=== PATIENT | female | born 1925 | race African-American/Black ===

== ENCOUNTER 2016-08-15 16:34 | Inpatient (IN) | payer OTHER, MEDICAID ==
[~2016-08-15] VITALS: Ht 157.5 cm; Wt 67.5 kg
[~2016-08-15 16:34] MED LIST: LISI30TA36; METF-370
[2016-08-15 17:42] LABS: Basophils # (auto) 0 uL; Basophils % (auto) 0.5 % (0.0-2.0); CONDITION Y; Eosinophils # (auto) 0.5 uL; Eosinophils % (auto) 7.7 % (0.0-7.0); Hematocrit 41.2 % (36.0-46.0); Hemoglobin 13.6 g/dL (12.2-16.2); Lymphocytes # (auto) 0.7 uL; Lymphocytes % (auto) 12.1 % (10.0-50.0); Mean Corpuscular Hgb Conc. 32.9 g/dL (32.0-36.0); Mean Corpuscular Volume 94.2 fL (80.0-100.0); Mean Platelet Volume 7.5 fL (7.4-10.4); Monocytes # (auto) 0.5 uL; Monocytes % (auto) 8.6 % (0.0-12.0); Neutrophils # (auto) 4.4 uL; Neutrophils % (auto) 71.1 % (37.0-80.0); Platelet Count (auto) 259 10^3/uL (140-450); White Blood Cell 6.1 10^3/uL (4.4-10.8)
[2016-08-15 17:51] LABS: Anion Gap 11 (5-15); Aspartate Aminotransferase 29 U/L (15-37); BUN/Creatinine Ratio 6.2; Blood Urea Nitrogen 12 mg/dL (7-18); Calcium 8.6 mg/dL (8.5-10.1); Carbon Dioxide 21 mmol/L (21-32); Chloride 109 mmol/L (98-107); GFR African American 31 mL/min; GFR Non-African American 26 mL/min; Glucose 127 mg/dL (74-106); Magnesium 2.3 mg/dL (1.6-2.6); Potassium 4.2 mmol/L (3.5-5.1); Sodium 141 mmol/L (136-145)
[2016-08-15 17:56] LABS: Alkaline Phosphatase 62 U/L (45-117); Bilirubin, Total 0.6 mg/dL (0.2-1.0); Total Protein 5.8 g/dL (6.4-8.2)
[2016-08-15] MEDS ORDERED: MORPHINE SULF INJ 2 MG/ML SYRINGE 1ML IV ONE (18:45)
[2016-08-15] MEDS ORDERED: FUROSEMIDE 40 MG/4 ML VIAL IV ONE (18:45)
[2016-08-15] MEDS ORDERED: ONDANSETRON HCL 4 MG/2 ML VIAL IV ONE (18:45)
[2016-08-15 21:16] LABS: B-Type Natriuretic Peptide 37.35 pg/mL (0-100)
[2016-08-15 21:17] LABS: Temperature: 23.7 C (20.0-25.0)
[2016-08-15] MEDS ORDERED: DOCUSATE SOD 100 MG CAP PO PRN (21:45)
[2016-08-15] MEDS ORDERED: TEMAZEPAM 15 MG CAP PO PRN (21:45)
[2016-08-15] MEDS ORDERED: ACETAMINOPHEN 325 MG TAB PO PRN (21:45)
[2016-08-15] MEDS ORDERED: NITROGLYCERIN 0.4 MG SL TAB SL PRN (21:45)
[2016-08-15] MEDS ORDERED: DEXTROSE (50%) 50ML SYRG IV PRN (21:45)
[2016-08-15] MEDS ORDERED: MORPHINE SULF INJ 2 MG/ML SYRINGE 1ML IV PRN (21:45)
[2016-08-15] MEDS ORDERED: ONDANSETRON HCL 4 MG/2 ML VIAL IV PRN (21:45)
[2016-08-15] MEDS: ATORVASTATIN 20 MG TAB PO SCH (23:06)
[2016-08-15] MEDS: FAMOTIDINE 20 MG TAB PO SCH (23:06)
[2016-08-15 23:42] LABS: Urine Bilirubin Negative (Negative); Urine Blood Negative /uL (Negative); Urine Color Yellow (Yellow); Urine Glucose Normal (Normal); Urine Ketone Negative (Negative); Urine Nitrite Negative (Negative); Urine RBC 4 /hpf (0 - 4); Urine Squamous Epithelial Cell FEW /hpf (<5); Urine Urobilinogen Normal (Negative)
[2016-08-16] VITALS (9 sets, daily range): BP systolic 113–163; BP diastolic 51–75
[2016-08-16] MEDS: ACCU-CHEK COMFORT CURVE STRIP VI SCH ×5 (00:16→23:50)
[2016-08-16] MEDS: InsuLIN REG 1unit/0.01ml Soln (100units/ml) SC SCH ×5 (00:22→23:50)
[2016-08-16 04:07] LABS: CONDITION Y; DEFINITIVE SEE PRINTOUT; Hematocrit 36.1 % (36.0-46.0); Hemoglobin 12.4 g/dL (12.2-16.2); Mean Corpuscular Hemoglobin 31.8 pg (28.0-32.0); Mean Corpuscular Hgb Conc. 34.4 g/dL (32.0-36.0); Mean Corpuscular Volume 92.2 fL (80.0-100.0); Platelet Count (auto) 248 10^3/uL (140-450); Red Cell Distribution Width 14.4 % (11.6-16.0); White Blood Cell 5.1 10^3/uL (4.4-10.8)
[2016-08-16 04:16] LABS: Myelocytes % 0; Promyelocytes % 0; Reactive Lymphocytes 0
[2016-08-16 04:29] LABS: Albumin 2.4 g/dL (3.4-5.0); Calcium 7.9 mg/dL (8.5-10.1); Potassium 3.7 mmol/L (3.5-5.1)
[2016-08-16 04:31] LABS: Bilirubin, Total 0.3 mg/dL (0.2-1.0); Total Protein 4.8 g/dL (6.4-8.2)
[2016-08-16 04:47] LABS: Hypersegmented Neutrophils Present; Metamyelocytes % 1; Platelet Estimate Adequate; RBC Morphology Normal
[2016-08-16] MEDS: FUROSEMIDE 20 MG TAB PO SCH ×2 (06:08→19:14)
[2016-08-16] MEDS ORDERED: HYDR-4663 PO (06:50)
[2016-08-16] MEDS ORDERED: GLIM1TAB2 PO (06:50)
[2016-08-16] MEDS ORDERED: LISI-275 PO (06:50)
[2016-08-16] MEDS ORDERED: AMLO5TAB2 PO (06:50)
[2016-08-16] MEDS ORDERED: METF-370 PO (06:50)
[2016-08-16] MEDS ORDERED: FOLI1TAB6 PO (06:50)
[2016-08-16] MEDS: GLIMEPIRIDE 2 MG TAB PO SCH (08:00)
[2016-08-16] MEDS: ENOXAPARIN SOD 30 MG/0.3 ML SYRINGE SC SCH (10:34)
[2016-08-16] MEDS: amLODIPine BESYLATE 5 MG TAB PO SCH (10:35)
[2016-08-16] MEDS: FAMOTIDINE 20 MG TAB PO SCH (10:35)
[2016-08-16] MEDS: LISINOPRIL 5 MG TAB PO SCH (10:35)
[2016-08-16 11:12] LABS: BUN/Creatinine Ratio 6.6; Calcium 8.1 mg/dL (8.5-10.1)
[2016-08-16] MEDS ORDERED: ceFAZolin 1GM VL ONE (12:51)
[2016-08-16] MEDS ORDERED: FUROSEMIDE 40 MG/4 ML VIAL IV ONE (15:45)
[2016-08-16] MEDS ORDERED: POTASSIUM CHL 10% (20 MEQ/15ML) ORAL SOLN PO ONE (15:45)
[2016-08-16 15:46] LABS: Base Excess -1.7 mmol/L (-2.0-2.0); Blood 02Sat 86.8 % (96-100); Blood COHb 0.1 % (0.5-1.5); Blood MetHb 0.4 % (0.0-1.5); HHb 13.1 % (0.0-5.0); MODE RA; O2Hb 86.4 % (94.0-97.0); PCO2 39.2 mmHg (35.0-45.0); PCO2(T) 39.2 mmHg (35.0-45.0); PO2 58.5 mmHg (80.0-100.0); PO2(T) 58.5 mmHg (80.0-100.0); Room 0247T; Sample Type Arterial; pH 7.387 (7.350-7.450)
[2016-08-16] MEDS: ATORVASTATIN 20 MG TAB PO SCH (21:36)
[2016-08-17 05:00] VITALS: BP 127/64
[2016-08-17] MEDS: FUROSEMIDE 20 MG TAB PO SCH ×2 (05:26→18:35)
[2016-08-17] MEDS: ACCU-CHEK COMFORT CURVE STRIP VI SCH ×4 (05:26→23:42)
[2016-08-17] MEDS: HYDROcodone-ACET 5/325MG TAB PO PRN ×2 (05:27→14:30)
[2016-08-17] MEDS: InsuLIN REG 1unit/0.01ml Soln (100units/ml) SC SCH ×4 (06:20→23:43)
[2016-08-17 07:40] VITALS: BP 106/56
[2016-08-17 07:46] LABS: Albumin 2.4 g/dL (3.4-5.0); Calcium 7.9 mg/dL (8.5-10.1); Magnesium 2.2 mg/dL (1.6-2.6); Potassium 4.3 mmol/L (3.5-5.1)
[2016-08-17 07:47] LABS: Basophils # (auto) 0 uL; Basophils % (auto) 0.1 % (0.0-2.0); CONDITION Y; Eosinophils # (auto) 0.3 uL; Eosinophils % (auto) 4.7 % (0.0-7.0); Hematocrit 38.7 % (36.0-46.0); Hemoglobin 12.9 g/dL (12.2-16.2); Lymphocytes # (auto) 0.5 uL; Lymphocytes % (auto) 7.7 % (10.0-50.0); Mean Corpuscular Hemoglobin 31.3 pg (28.0-32.0); Mean Corpuscular Hgb Conc. 33.4 g/dL (32.0-36.0); Mean Corpuscular Volume 93.7 fL (80.0-100.0); Mean Platelet Volume 7.9 fL (7.4-10.4); Monocytes # (auto) 0.7 uL; Monocytes % (auto) 11.7 % (0.0-12.0); Neutrophils # (auto) 4.7 uL; Neutrophils % (auto) 75.8 % (37.0-80.0); Platelet Count (auto) 256 10^3/uL (140-450); Red Cell Distribution Width 14.5 % (11.6-16.0); White Blood Cell 6.2 10^3/uL (4.4-10.8)
[2016-08-17 07:48] LABS: BUN/Creatinine Ratio 7.1
[2016-08-17 07:50] LABS: Bilirubin, Total 0.5 mg/dL (0.2-1.0); Total Protein 5.1 g/dL (6.4-8.2)
[2016-08-17 08:05] LABS: INR 1.03 (0.9-1.15); Prothrombin Time 11.2 sec (9.37-12.3)
[2016-08-17] MEDS: GLIMEPIRIDE 2 MG TAB PO SCH (08:35)
[2016-08-17 09:00] VITALS: BP 106/56
[2016-08-17] MEDS: amLODIPine BESYLATE 5 MG TAB PO SCH (10:00)
[2016-08-17] MEDS: LISINOPRIL 5 MG TAB PO SCH (10:00)
[2016-08-17] MEDS: FAMOTIDINE 20 MG TAB PO SCH (10:09)
[2016-08-17] MEDS: ENOXAPARIN SOD 30 MG/0.3 ML SYRINGE SC SCH (10:09)
[2016-08-17 13:00] VITALS: BP 101/54
[2016-08-17 17:00] VITALS: BP 113/55
[2016-08-17] MEDS: ATORVASTATIN 20 MG TAB PO SCH (21:49)
[2016-08-17 22:00] VITALS: BP 125/58
[2016-08-18 05:00] VITALS: BP 129/76
[2016-08-18] MEDS: FUROSEMIDE 20 MG TAB PO SCH (05:49)
[2016-08-18] MEDS: ACCU-CHEK COMFORT CURVE STRIP VI SCH ×2 (05:49→12:15)
[2016-08-18] MEDS: InsuLIN REG 1unit/0.01ml Soln (100units/ml) SC SCH ×2 (06:00→12:16)
[2016-08-18 07:39] LABS: CONDITION Y; DEFINITIVE SEE PRINTOUT; Hematocrit 40.3 % (36.0-46.0); Hemoglobin 13.3 g/dL (12.2-16.2); Mean Corpuscular Hemoglobin 31.2 pg (28.0-32.0); Mean Corpuscular Volume 94.6 fL (80.0-100.0); Mean Platelet Volume 7.9 fL (7.4-10.4); Platelet Count (auto) 283 10^3/uL (140-450); Red Cell Distribution Width 14.3 % (11.6-16.0); White Blood Cell 5.9 10^3/uL (4.4-10.8)
[2016-08-18 07:41] LABS: INR 1.02 (0.9-1.15); Prothrombin Time 11.1 sec (9.37-12.3)
[2016-08-18 07:43] LABS: Metamyelocytes % 0; Myelocytes % 0; Promyelocytes % 0; Reactive Lymphocytes 0
[2016-08-18 07:56] LABS: Albumin 2.6 g/dL (3.4-5.0); BUN/Creatinine Ratio 7.6; Bilirubin, Total 0.5 mg/dL (0.2-1.0); Calcium 8.4 mg/dL (8.5-10.1); Magnesium 2.1 mg/dL (1.6-2.6); Potassium 3.9 mmol/L (3.5-5.1); Total Protein 5.4 g/dL (6.4-8.2)
[2016-08-18 08:00] VITALS: BP 129/76
[2016-08-18] MEDS: GLIMEPIRIDE 2 MG TAB PO SCH (08:16)
[2016-08-18 08:42] LABS: Platelet Estimate Adequate; RBC Morphology Normal
[2016-08-18 08:44] VITALS: BP 138/68
[2016-08-18] MEDS: ENOXAPARIN SOD 30 MG/0.3 ML SYRINGE SC SCH (09:54)
[2016-08-18] MEDS: FAMOTIDINE 20 MG TAB PO SCH (09:55)
[2016-08-18] MEDS: amLODIPine BESYLATE 5 MG TAB PO SCH (09:55)
[2016-08-18] MEDS: LISINOPRIL 5 MG TAB PO SCH (09:56)
[2016-08-18 13:00] VITALS: BP 112/63
[2016-08-18 13:28] VITALS: BP 138/68
[2016-08-18 14:24] VITALS: BP 138/68
== END 2016-08-18 15:20 | disposition home or self-care (01) | DRG 291 ==
LOC: EDBD 16:34 → ER 16:38 → TELE 16:39 → TELE-EAST 08-16 05:02
PROVIDERS: ADMIT Internal Medicine; ATTEND Internal Medicine
DX: I13.0 Hypertensive heart and chronic kidney disease with heart failure and stage 1 through stage 4 chronic kidney disease, or unspecified chronic kidney disease (principal); I50.33 Acute on chronic diastolic (congestive) heart failure; E11.22 Type 2 diabetes mellitus with diabetic chronic kidney disease; N18.3 Chronic kidney disease, stage 3 (moderate); Z82.49 Family history of ischemic heart disease and other diseases of the circulatory system; Z79.84 Long term (current) use of oral hypoglycemic drugs; Z79.899 Other long term (current) drug therapy; Z80.9 Family history of malignant neoplasm, unspecified
CPT/HCPCS: 36415; 36600; 71010; 80048; 80053; 81001; 82805; 82962; 83735; 83880; 84484; 85007; 85025; 85027; 85610; 87081; 93005; 93306; 93970; 96374; 96375; J0690; J1815; J2405